=== PATIENT | male | born 1985 | race Caucasian/White ===

== ENCOUNTER 2020-11-02 | Emergency (ER) | payer BC ==
[2020-11-02 05:10] LABS: BLOOD UREA NITROGEN,BUN 17 mg/dL (7.0-18.0); CHLORIDE,CL 101 mmol/L (98-107); GLUCOSE RANDOM 137 mg/dL (74-106); POTASSIUM,K 3.8 mmol/L (3.5-5.1); SODIUM,NA 135 mmol/L (136-148)
--- NOTE | 2020-11-02 13:01 | CR ---
INDICATION: Shortness of breath TECHNIQUE: Chest radiograph 1 view COMPARISON: None FINDINGS: Mediastinum: The mediastinum is normal in appearance. The heart silhouette is normal in size and morphology. Lung: Reticulonodular opacities are present within right lung base. No sign of pleural effusion seen. No pneumothorax is identified. Bone and Soft tissue: Unremarkable for age. IMPRESSION: 1. Reticulonodular opacities are present within right lung base. These findings can be seen with atelectasis and/or pneumonia. Dictated by Semaj Salguero MD @ 11/02/2020 12:58:43 PM Dictated by: Semaj Salguero MD @ 11/02/2020 12:58:47 (Electronically Signed)
[2020-11-02 16:29] VITALS: PULSE 103
== END 2020-11-02 01:51 | disposition home or self-care (01) ==
LOC: MW.ED
DX: U07.1 COVID-19 (principal); I10 Essential (primary) hypertension
CPT/HCPCS: 36415; 71045; 71045-26; 80053; 81001; 83880; 84484; 85025; 93005; 99285-25

== ENCOUNTER 2023-05-01 13:31 | Emergency (ER) | payer BC ==
[2023-05-01] MEDS ORDERED: Sodium Chloride 0.9% 1,000 ML IV STA (13:42)
[2023-05-01] MEDS ORDERED: Diphtheria,Pertussis(Acell),Tetanus Vaccine 0.5 ML Syringe IM ONE (13:42)
[2023-05-01] MEDS ORDERED: Acetaminophen 500 MG Tab PO STA (13:42)
[2023-05-01 13:55] LABS: BASOPHILS PERCENT AUTO 0.1 % (0.0-1.5); EOSINOPHILS PERCENT AUTO 0.3 % (0.0-7.0); HEMATOCRIT 45.1 % (38.0-50.0); LYMPHOCYTES ABSOLUTE AUTO 2.5 K/uL (0.6-2.4); LYMPHOCYTES PERCENT AUTO 16.7 % (16.0-40.0); MEAN CORPUSCULAR HEMOGLOBIN 29.7 pg (27.0-32.0); MEAN CORPUSCULAR HGB CONC 35.5 g/dL (31.0-37.0); MEAN CORPUSCULAR VOLUME 83.7 fL (80.0-98.0); MONOCYTES ABSOLUTE AUTO 1.2 K/uL (0.0-0.8); MONOCYTES PERCENT AUTO 8.2 % (0.0-15.0); NEUTROPHILS ABSOLUTE AUTO 10.9 K/uL (1.4-5.7); NEUTROPHILS PERCENT AUTO 74.7 % (48.0-80.0); NRBC ABSOLUTE 0 K/uL; PLATELET COUNT,PLT 274 K/uL (150-400); RED BLOOD CELL COUNT 5.39 M/uL (4.50-5.90); WHITE BLOOD CELL COUNT,WBC 14.64 K/uL (4.0-11.0)
[2023-05-01 14:00] LABS: INR 0.97 (0.86-1.11)
[2023-05-01] MEDS ORDERED: Octyl 2-Cyanoacrylate 1 g/1 mL 1 APPLIC PEN TOP STA (14:06)
[2023-05-01 14:16] LABS: A/G RATIO 1.1 (0.9-1.6); ALBUMIN 4.3 g/dL (3.4-5.0); BILIRUBIN TOTAL 0.6 mg/dL (0.2-1.0); CALCIUM 9.5 mg/dL (8.5-10.1); CARBON DIOXIDE,CO2 24.8 mmol/L (21.0-32.0); CREATININE 1.1 mg/dL (0.8-1.3); EST CRCL DRUG DOSING (CG) 112.88 mL/min; POTASSIUM,K 3.7 mmol/L (3.5-5.1); PROTEIN TOTAL,TP 8.3 g/dL (6.4-8.2)
[2023-05-01 17:40] VITALS: BP 150/86; PULSE 63
== END 2023-05-01 17:27 | disposition home or self-care (01) ==
LOC: MW.ED 13:31
DX: S01.111A Laceration without foreign body of right eyelid and periocular area, initial encounter (principal); S43.102A Unspecified dislocation of left acromioclavicular joint, initial encounter; R03.0 Elevated blood-pressure reading, without diagnosis of hypertension; V86.55XA Driver of 3- or 4- wheeled all-terrain vehicle (ATV) injured in nontraffic accident, initial encounter
CPT/HCPCS: 12013; 36415; 70450; 71046; 72125; 73030; 80053; 83690; 85025; 85610; 90471; 90715; 96360; 96361; 99284; A9270; J7030